=== PATIENT | male | born 1975 | race African-American/Black ===

== ENCOUNTER 2018-09-16 05:27 | Emergency (ER) | payer OTHER, BC ==
[~2018-09-16] VITALS: Ht 175.3 cm; Wt 112.0 kg
[2018-09-16 06:15] LABS: BASOPHILS % 0.5 % (0.0-2.0); EOSINOPHILS % 0.3 % (0.0-5.0); HEMATOCRIT. 52.6 % (42.0-52.0); HEMOGLOBIN. 17.6 g/dL (14.0-18.0); LYMPHOCYTES % 17.2 % (20.0-50.0); MEAN CORPUSCULAR HEMOGLOBIN 30.2 pg (28.0-32.0); MEAN CORPUSCULAR VOLUME 90.1 fL (80.0-94.0); MEAN PLATELET VOLUME 8.5 fl (7.4-10.4); MONOCYTES % 6.2 % (2.0-8.0); NEUTROPHILS % 75.8 % (40.0-76.0); PLATELET 214 x1000/uL (130-400); RED BLOOD CELL COUNT 5.83 mill/uL (4.7-6.1); RED CELL DISTRIBUTION WIDTH 14.4 % (11.6-14.6)
[2018-09-16 06:24] LABS: CHLORIDE 102 mEq/L (98-107)
[2018-09-16 08:23] LABS: BG BASE EXCESS 1.6 mmol/L (-2.0-2.0); BG DEOXYHEMOGLOBIN 6.6 % (0.0-5.0); BG HCO3 ACT 26.2 mmol/L (22.0-26.0); BG METHEMOGLOBIN 0.6 % (0.0-1.5); BG OXYGEN SATURATION 93.3 % (92.0-98.5); BG OXYHEMOGLOBIN 91.8 % (94.0-97.0); BG PCO2 41.3 mmHg (35.0-45.0); BG PH 7.421 (7.350-7.450); BG PO2 68.6 mmHg (75.0-100.0); BG SAMPLE SITE RIGHT RADIAL; BG TOTAL HEMOGLOBIN 18.2 g/dL (12.0-18.0); BG VENT MODE ROOM AIR
[2018-09-16 11:31] VITALS: BP 151/92
== END 2018-09-16 12:35 | disposition short-term general hospital (02) ==
LOC: ER 05:27
DX: R09.02 Hypoxemia (principal); I44.7 Left bundle-branch block, unspecified
CPT/HCPCS: 36415; 36600; 71045; 82375; 82805; 83880; 84484; 85379; 93005; 99285

== ENCOUNTER 2018-10-02 23:38 | Emergency (ER) | payer OTHER, BC ==
[~2018-10-02] VITALS: Ht 182.9 cm; Wt 104.0 kg
[2018-10-02] MEDS ORDERED: ASPI-1159 PO (23:56)
[2018-10-02] MEDS ORDERED: BISO5TAB13 PO (23:56)
[2018-10-02] MEDS ORDERED: LISI10TA5 PO (23:56)
[2018-10-02] MEDS ORDERED: FURO-152 PO (23:56)
[2018-10-02] MEDS ORDERED: SPIR25TA6 PO (23:56)
[2018-10-03 00:36] LABS: EOSINOPHILS % 1.1 % (0.0-5.0); HEMATOCRIT. 50.8 % (42.0-52.0); HEMOGLOBIN. 17.2 g/dL (14.0-18.0); LYMPHOCYTES % 39.5 % (20.0-50.0); MEAN CORPUSCULAR HEMOGLOBIN 30.5 pg (28.0-32.0); MEAN CORPUSCULAR VOLUME 89.9 fL (80.0-94.0); MEAN PLATELET VOLUME 10.2 fl (7.4-10.4); MONOCYTES % 10.1 % (2.0-8.0); NEUTROPHILS % 48.3 % (40.0-76.0); PLATELET 226 x1000/uL (130-400); RED BLOOD CELL COUNT 5.65 mill/uL (4.7-6.1); RED CELL DISTRIBUTION WIDTH 13.9 % (11.6-14.6)
[2018-10-03 00:45] LABS: CHLORIDE 101 mEq/L (98-107)
[2018-10-03 00:51] LABS: ETHANOL BLOOD < 10 mg/dL
[2018-10-03 03:01] VITALS: BP 130/64
== END 2018-10-03 03:15 | disposition short-term general hospital (02) ==
LOC: ER 23:38 → CANBEDREQ 10-03 03:33
DX: R00.2 Palpitations (principal); R06.02 Shortness of breath; I44.7 Left bundle-branch block, unspecified; I51.7 Cardiomegaly
CPT/HCPCS: 36415; 71045; 80053; 83880; 84443; 84484; 85025; 93005; 99285; G0482

== ENCOUNTER 2022-08-27 00:09 | Emergency (ER) | payer OTHER ==
[~2022-08-27] VITALS: Ht 177.8 cm; Wt 100.0 kg
[~2022-08-27 00:09] MED LIST: ASPI-1497 PO; BISO5TAB13 PO; FURO-152 PO; LISI10TA26 PO; SPIR25TA6 PO
[2022-08-27 03:53] LABS: EOSINOPHILS % 1.2 % (0.0-5.0); HEMATOCRIT. 51.3 % (42.0-52.0); HEMOGLOBIN. 17.3 g/dL (14.0-18.0); LYMPHOCYTES % 27.8 % (20.0-50.0); MEAN PLATELET VOLUME 8.8 fl (7.4-10.4); MONOCYTES % 10.5 % (2.0-8.0); NEUTROPHILS % 59.5 % (40.0-76.0); PLATELET 191 x1000/uL (130-400); RED BLOOD CELL COUNT 5.76 mill/uL (4.7-6.1); RED CELL DISTRIBUTION WIDTH 13.5 % (11.6-14.6)
[2022-08-27 03:57] LABS: CHLORIDE 103 mEq/L (98-107)
[2022-08-27 04:09] LABS: ETHANOL BLOOD < 10 mg/dL
[2022-08-27] MEDS ORDERED: ASPI-1497 MT (05:37)
[2022-08-27 05:58] LABS: *AMPHETAMINES SCREEN URINE NEGATIVE (NEGATIVE); *BARBITURATES SCREEN URINE NEGATIVE (NEGATIVE); *BENZODIAZEPINES SCREEN URINE NEGATIVE (NEGATIVE); *COCAINE SCREEN URINE NEGATIVE (NEGATIVE); CANNABINOID URINE SCREEN NEGATIVE (NEGATIVE); METHADONE URINE SCREEN NEGATIVE (NEGATIVE); OPIATES URINE SCREEN NEGATIVE (NEGATIVE); PHENCYCLIDINE URINE SCREEN NEGATIVE (NEGATIVE)
[2022-08-27 06:40] VITALS: BP 131/73
== END 2022-08-27 10:00 | disposition home or self-care (01) ==
LOC: ER 00:09
DX: R06.02 Shortness of breath (principal); R94.31 Abnormal electrocardiogram [ECG] [EKG]; I11.0 Hypertensive heart disease with heart failure; I50.9 Heart failure, unspecified; I44.7 Left bundle-branch block, unspecified; R14.0 Abdominal distension (gaseous)
CPT/HCPCS: 36415; 71045; 80053; 80305; 80320; 83880; 84484; 85025; 93005; 99285; G0480